=== PATIENT | male | born 1980 | race Caucasian/White ===

== ENCOUNTER → 2023-07-01 08:13 | Outpatient (REF) | payer BC, SELFPAY | LOC: RCS 08:13 | PROVIDERS: ATTENDING PHYSICIAN Nurse Practitioner Family | DX: R07.9 Chest pain, unspecified (principal) | CPT/HCPCS: 93017; 93350; Q9957 ==

== ENCOUNTER → 2025-03-15 08:20 | Outpatient (REF) | payer OTHER, SELFPAY | LOC: RCS 08:20 | PROVIDERS: ATTENDING PHYSICIAN Internal Medicine; FAMILY PHYSICIAN Nurse Practitioner Family | DX: R06.02 Shortness of breath (principal) | CPT/HCPCS: 93307; Q9957 ==